=== PATIENT | female | born 1965 | race American Indian/Alaskan Native ===

== ENCOUNTER 2016-12-26 09:17 | Outpatient (CLI) | payer MEDICARE ==
--- NOTE | 2016-12-26 10:18 | Mammography Report ---
BILATERAL MAMMOGRAM: Compared to 12/25/15. CAD study utilized. FINDINGS: Heterogeneous breast parenchyma bilaterally. No mass or microcalcification. Benign calcification left breast. Benign axillary nodes. IMPRESSION: Benign findings. Annual follow-up recommended. BI-RADS CATEGORY: 2 = Benign ACR BI-RADS MAMMOGRAPHIC CODES: 0 = Needs additional imaging evaluation; 1 = Negative; 2 = Benign; 3 = Probably benign; 4 = Suspicious; 5 = Malignant; 6 = Known biopsy-proven malignancy COMMENT: 1. Dense breast tissue, i.e., adenosis, fibrocystic changes, etc., may obscure an underlying neoplasm. 2. Approximately 10% of cancers are not detected with mammography. 3. A negative mammography report should not delay biopsy if a clinically suspicious mass is present. COMMENT: Patient follow-up letters are generated in [employer].
== END 2016-12-26 09:18 | disposition home or self-care (01) ==
LOC: MAMMO 09:17
PROVIDERS: ATTEND Family Medicine
DX: Z12.31 Encounter for screening mammogram for malignant neoplasm of breast (principal)
CPT/HCPCS: 77067; G0202

== ENCOUNTER 2017-11-16 02:46 | Emergency (ER) | payer MEDICARE ==
[2017-11-16 03:22] VITALS: BP 145/94
[2017-11-16] MEDS ORDERED: TETRACAINE 0.5% OU ONE (03:31)
[2017-11-16] MEDS ORDERED: FUL-GLO OP ONE ×2 (03:31→03:34)
[2017-11-16] MEDS ORDERED: TETRACAINE 0.5% ONE (03:34)
--- NOTE | 2017-11-16 03:56 | Emergency Department Report ---
[facility] Chief Complaint: Eye Problems Stated Complaint: LEFT EYE PAIN Time Seen by Provider: 11/16/17 03:51 Duration: 1 Day Side: Left Severity: moderate Symptoms: Yes Eye Redness, Yes Eye Pain, No Eye Itching, No Mucous Drainage, No Purulent Drainage, No Blurred Vision, No Preceding URI, No H/O Allergic Rhinitis , No Contact Lens Use, No Trauma, No Fever, No Headache Other History: Patient is a 52-year-old female who states yesterday she was using eyeliner pencil to the put some on her left eye when she accidentally got some in her eye. Patient states she later all flushed it with water. Patient states when she woke up this morning minimizes close shut with some yellow pus around it. Patient states left eye pain with noitching. ED Review of Systems ROS: Stated complaint: LEFT EYE PAIN Other details as noted in HPI Constitutional: denies: chills, fever Eyes: denies: eye pain, eye discharge, vision change ENT: denies: ear pain, throat pain, congestion Respiratory: denies: cough, shortness of breath, wheezing Cardiovascular: denies: chest pain, palpitations Endocrine: no symptoms reported Gastrointestinal: denies: abdominal pain, nausea, diarrhea Genitourinary: denies: urgency, dysuria, discharge Musculoskeletal: denies: back pain, joint swelling, arthralgia Skin: denies: rash, lesions, pruritus Neurological: denies: headache, weakness, numbness, paresthesias, confusion Psychiatric: denies: anxiety, depression Hematological/Lymphatic: denies: easy bleeding, easy bruising ED Past Medical Hx - Past Medical History Previous Medical History?: Yes Hx Hypertension: Yes Additional medical history: High Cholesterol, Rhuematoid arthritis - Social History Smoking Status: Unknown if ever smoked Substance Use Type: None - Medications Home Medications: Home Medications Medication Instructions Recorded Confirmed Last Taken Type Ofloxacin [Ocuflox 0.3%] 1 - 2 drop OP Q6HR #5 ml 11/16/17 Unknown Rx [facility] Exam - Exam General: Vital signs noted. No distress. Alert and acting appropriately. Eye Exam: Left Injection, Both EOMI, Neither Chemosis, Neither Abnormal Pupil, Neither Eye Foreign Body, Neither Lid Foreign Body, Neither Mucous Discharge, Neither Purulent Discharge, Neither Fluorescein Uptake, Neither Corneal Edema, Neither Photophobia HEENT: No Nasal Congestion, No Pharyngeal Erythema Remainder of HEENT: Normal Lungs: Yes Clear Lung Sounds, Yes Good Air Exchange, No Wheezes, No Stridor, No Cough, No Nasal Flaring, No Retractions, No Use of Accessory Muscles Exam: Visual acuity testing. Left eye: 20/40. Right eye: 20/30. Both:20/30 ED Course Vital Signs 11/16/17 03:14 Temperature 98.4 F Pulse Rate 96 H Respiratory 18 Rate Blood Pressure 145/94 O2 Sat by Pulse 97 Oximetry ED Medical Decision Making - Medical Decision Making This is year-old female presents with conjunctivitis of the left eye ED course: Visual acuity testing done normal No signs of corneal abrasion I discussed this findings with the patient. I discussed patient who continues antibiotic eyedrops as prescribed I discussed patient to stop scratching or rubbing the eyes as it makes it worse I discuss with the patient to follow up with primary care physician physician. Vital signs are normalized. Patient is in no acute or respiratory distress. She understands instructions given. I discussed with the patient has symptoms were to worsen to return to ED immediately. Critical care attestation.: If time is entered above; I have spent that time in minutes in the direct care of this critically ill patient, excluding procedure time. ED Disposition Clinical Impression: Conjunctivitis Qualifiers: Conjunctivitis type: acute Acute conjunctivitis type: unspecified Laterality: left Qualified Code(s): H10.32 - Unspecified acute conjunctivitis, left eye Disposition: DC-01 TO HOME OR SELFCARE Is pt being admited?: No Does the pt Need Aspirin: No Condition: Stable Instructions: Conjunctivitis (ED), Eye Foreign Body (ED) Additional Instructions: Make sure to follow up with the primary care physician as discussed. Take all your medications as you've been prescribed. If you have any worsening symptoms or develop new symptoms please return to ED immediately. Prescriptions: Ofloxacin [Ocuflox 0.3%] 1 - 2 drop OP Q6HR #5 ml Referrals: MATI ALVARADO JR, MD [Primary Care Provider] - 3-5 Days Forms: Work/School Release Form(ED) Time of Disposition: 04:38
== END 2017-11-16 04:59 | disposition home or self-care (01) ==
LOC: ED 02:46
DX: H10.32 Unspecified acute conjunctivitis, left eye (principal); I10 Essential (primary) hypertension; E78.00 Pure hypercholesterolemia, unspecified; M06.9 Rheumatoid arthritis, unspecified
CPT/HCPCS: 99283